=== PATIENT | male | born 1995 | race Caucasian/White ===

== ENCOUNTER 2018-12-27 20:17 | Emergency (ER) | payer MEDICAID, OTHER ==
[2018-12-27] MEDS: ONDANSETRON (ODT) 4 MG TAB ODT (21:22)
[2018-12-27] MEDS: HYDROCODONE/APAP (5/325) TAB PO (21:22)
== END 2018-12-27 22:31 | disposition home or self-care (01) ==
LOC: FTE 20:17
DX: S06.0X0A Concussion without loss of consciousness, initial encounter (principal); J32.8 Other chronic sinusitis; W01.0XXA Fall on same level from slipping, tripping and stumbling without subsequent striking against object, initial encounter; Y92.9 Unspecified place or not applicable
CPT/HCPCS: 70450; 99284-25

== ENCOUNTER 2019-01-03 21:47 | Emergency (ER) | payer MEDICAID | END 2019-01-03 22:40 | disposition home or self-care (01) | LOC: FTE 21:47 | DX: R51 Headache (principal) | CPT/HCPCS: 99283; Z7502 ==

== ENCOUNTER 2019-01-19 18:54 | Emergency (ER) | payer MEDICAID ==
[2019-01-19] MEDS: IBUPROFEN 800 MG TAB PO (20:06)
[2019-01-19] MEDS: METHYLPREDNISOLONE 125 MG INJ IM (20:06)
== END 2019-01-19 20:24 | disposition home or self-care (01) ==
LOC: FTE 18:54
DX: J06.9 Acute upper respiratory infection, unspecified (principal)
CPT/HCPCS: 96372; 99284-25; J2930

== ENCOUNTER 2019-01-21 16:53 | Emergency (ER) | payer MEDICAID | END 2019-01-21 21:57 | disposition home or self-care (01) | LOC: FTE 16:53 | DX: H93.13 Tinnitus, bilateral (principal) | CPT/HCPCS: 99282; Z7502 ==

== ENCOUNTER 2019-02-04 13:57 | Emergency (ER) | payer MEDICAID ==
[2019-02-04] MEDS: LORAZEPAM 0.5 MG TAB PO (14:40)
== END 2019-02-04 15:07 | disposition home or self-care (01) ==
LOC: FTE 15:07
DX: F41.9 Anxiety disorder, unspecified (principal); R00.2 Palpitations
CPT/HCPCS: 93005; 99283-25

== ENCOUNTER 2019-02-17 11:16 | Emergency (ER) | payer MEDICAID ==
[2019-02-17] MEDS: LORAZEPAM 2 MG INJ IV (12:00)
[2019-02-17] MEDS: ONDANSETRON 4 MG INJ IV (12:01)
[2019-02-17] MEDS: SOD CHLORIDE 0.9% 1,000 ML IV (12:01)
[2019-02-17 12:09] LABS: ADD MAN DIFF? NO
[2019-02-17 12:17] LABS: BASOPHIL # 0.1 10^3/ul (0.0-0.1); BASOPHILS % 0.6 % (0.0-2.0); EOSINOPHILS % 0.3 % (0.0-7.0); HEMATOCRIT 45.2 % (42.0-52.0); HEMOGLOBIN 15.4 g/dl (14.0-18.0); LYMPHOCYTES # 1.2 10^3/ul (0.8-2.9); MEAN CORPUSCULAR HEMOGLOBIN 31.6 pg (29.0-33.0); MEAN CORPUSCULAR HGB CONC 34.1 g/dl (32.0-37.0); MEAN CORPUSCULAR VOLUME 92.6 fl (82.0-101.0); MEAN PLATELET VOLUME 8.7 fl (7.4-10.4); MONOCYTE # 0.5 10^3/ul (0.3-0.9); MONOCYTES % 4.6 % (0.0-11.0); NEUTROPHILS % 82.9 % (39.0-77.0); PLATELET COUNT 292 10^3/UL (140-415); RED BLOOD COUNT 4.88 10^6/ul (4.70-6.10); RED CELL DISTRIBUTION WIDTH 12.8 % (11.5-14.5)
[2019-02-17 12:17] LABS: WHITE BLOOD COUNT 10.9 10^3/ul (4.8-10.8)
[2019-02-17 12:18] LABS: ADD UMIC YES; UR ASCORBIC ACID NEGATIVE (NEGATIVE); UR BILIRUBIN (Dip) NEGATIVE (NEGATIVE); UR BLOOD (Dip) NEGATIVE (NEGATIVE); UR CLARITY CLEAR (CLEAR); UR COLOR AMBER (YELLOW); UR GLUCOSE (Dip) NEGATIVE (NEGATIVE); UR KETONES (Dip) 1+ mg/dL (NEGATIVE); UR LEUKOCYTE ESTERASE (Dip) NEGATIVE Leu/ul (NEGATIVE); UR MUCUS MANY /HPF (NONE SEEN); UR NITRITE (Dip) NEGATIVE (NEGATIVE); UR RBC 1 /HPF (0-5); UR TOTAL PROTEIN (Dip) 2+ mg/dl (NEGATIVE); UR UROBILINOGEN (Dip) 1+ mg/dL (NEGATIVE); UR WBC 2 /HPF (0-5)
[2019-02-17 12:33] LABS: ALANINE AMINOTRANSFERASE 38 IU/L (13-69); ALBUMIN 5.1 g/dl (3.3-4.9); ALBUMIN/GLOBULIN RATIO 1.54; ALKALINE PHOSPHATASE 98 IU/L (42-121); ANION GAP 15 (5-13); ASPARTATE AMINO TRANSFERASE 62 IU/L (15-46); BILIRUBIN,INDIRECT 1.1 mg/dl (0-1.1); BILIRUBIN,TOTAL 1.1 mg/dl (0.2-1.3); BLOOD UREA NITROGEN 11 mg/dl (7-20); CALCIUM 9.7 mg/dl (8.4-10.2); CARBON DIOXIDE 26 mmol/L (21-31); CHLORIDE 98 mmol/L (97-110); CREATININE 1.08 mg/dl (0.61-1.24); Estimated GFR > 60 mL/min (>60); GLUCOSE 81 mg/dl (70-220); POTASSIUM 4.1 mmol/L (3.5-5.1); SODIUM 139 mmol/L (135-144); TOTAL PROTEIN 8.4 g/dl (6.1-8.1)
== END 2019-02-17 13:19 | disposition home or self-care (01) ==
LOC: FTE 11:16
DX: F10.280 Alcohol dependence with alcohol-induced anxiety disorder (principal)
CPT/HCPCS: 36415; 80053; 81001; 85025; 96374; 96375; 99284-25

== ENCOUNTER 2019-03-03 22:58 | Emergency (ER) | payer MEDICAID | END 2019-03-04 00:17 | disposition home or self-care (01) | LOC: FTE 22:58 | DX: G47.00 Insomnia, unspecified (principal); F15.10 Other stimulant abuse, uncomplicated | CPT/HCPCS: 99283; Z7502 ==

== ENCOUNTER 2019-04-06 20:31 | Emergency (ER) | payer MEDICAID ==
[2019-04-06] MEDS: LORAZEPAM 1 MG TAB PO (21:16)
== END 2019-04-06 22:24 | disposition home or self-care (01) ==
LOC: FTE 20:31
DX: F41.9 Anxiety disorder, unspecified (principal)
CPT/HCPCS: 93005; 99283-25

== ENCOUNTER 2019-04-24 15:04 | Emergency (ER) | payer MEDICAID | END 2019-04-24 16:26 | disposition home or self-care (01) | LOC: E/R 16:26 | DX: R10.12 Left upper quadrant pain (principal); J30.9 Allergic rhinitis, unspecified; F41.9 Anxiety disorder, unspecified | CPT/HCPCS: 99282; Z7502 ==